=== PATIENT | female | born 1950 | race Caucasian/White ===

== ENCOUNTER 2016-09-08 20:01 | Observation (INO) | payer MEDICARE ==
[2016-09-08] MEDS: Aspirin EC Low Dose* 81 MG TAB.EC PO SCH (23:21)
[2016-09-08] MEDS: Metoprolol Tartrate TAB* 25 MG PO SCH (23:21)
[2016-09-08 23:41] LABS: Hematocrit 34 % (35-47); Hemoglobin 11.3 g/dl (12.0-16.0); Mean Corpuscular HGB Conc 34 g/dl (31-36); Mean Corpuscular Hemoglobin 30 pg (27-31); Mean Corpuscular Volume 90 fL (80-97); Mean Platelet Volume 9 um3 (7.4-10.4); Red Blood Count 3.74 10^6/ul (4.0-5.4); Red Cell Distribution Width 15 % (10.5-15); White Blood Count 7.7 10^3/ul (3.5-10.8)
[2016-09-08 23:55] LABS: Albumin 3.8 g/dL (3.2-5.2); Calcium 9.2 mg/dL (8.6-10.3); EGFR African American 52.1 (>60); EGFR Non-African American 40.5 (>60); Globulin 2.3 g/dL (2-4); Total Bilirubin 0.7 mg/dL (0.2-1.0); Total Protein 6.1 g/dL (6.4-8.9)
[2016-09-09] MEDS: Heparin VIAL(*) 5000 UNITS/ML VIAL (FIVE THOUSAND) SUBCUT SCH ×2 (05:59→15:18)
[2016-09-09 06:28] LABS: HDL Cholesterol 27.7 mg/dL
[2016-09-09 07:41] VITALS: BP 127/45
[2016-09-09] MEDS: Metoprolol Tartrate TAB* 25 MG PO SCH (08:21)
[2016-09-09] MEDS: Aspirin EC Low Dose* 81 MG TAB.EC PO SCH (08:21)
--- NOTE | 2016-09-09 08:52 | RAD ---
Indication: Chest pain. 2 views of the chest including dual energy PA views demonstrate no mediastinal shift. Heart is of normal size and configuration. Lung neumann demonstrate no pleural fluid, pneumonia or pneumothorax. IMPRESSION: No active cardiopulmonary disease is noted.
--- NOTE | 2016-09-09 09:05 | HP ---
HISTORY AND PHYSICAL: DATE OF ADMISSION: 09/08/16 She has no Primary Care Provider. CHIEF COMPLAINT: Chest pain. HISTORY OF PRESENT ILLNESS: The patient is a 65-year-old woman who presents to [facility] with a chief complaint of having chest pain recently. She knows she has had a high blood pressure all week; she says it's unusual for her. Then, her arm started aching on the left side. Then, she started feeling like someone was squeezing on her chest. It stayed quite a while and noticed it on and off for the last several days. Chest pressure at its worse was 7/10 in severity. It did not radiate. She had nausea, but no vomiting. She was sweating, but not clammy. She was short of breath. She did have increased chest pain with any exertion. She went to [facility] finally because she became concerned, and they sent her over our hospital for further evaluation. PAST MEDICAL HISTORY: Significant for hypertension, nephrolithiasis, status post lithotripsy. PAST SURGICAL HISTORY: Significant for cholecystectomy, two C-sections, JOANNE-BSO , appendectomy. MEDICATIONS: She only takes a baby aspirin a day. ALLERGIES: She has an allergy/adverse reaction to DEMEROL. SOCIAL HISTORY: Smokes 7 cigarettes a day; has smoked up to one and half packs a day and has been smoking for 48 years. Rare alcohol. No recreational drug use. 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 She is , with 3 children. Her , Cipriano Del Cid, is her healthcare proxy. FAMILY HISTORY: Mother at 60 of lung cancer. Father at 69 of lung cancer, and had an NE at 68 and four-vessel bypass. REVIEW OF SYSTEMS: A 14-point review of systems was completed with the patient , all pertinent positives and negatives are in the history of present illness, otherwise, it is negative. PHYSICAL EXAMINATION GENERAL: Pleasant woman, lying in bed, in no acute distress. VITAL SIGNS: Heart rate 61 beats per minute, temperature 98.4 degrees, respiratory rate 20 breaths per minute, pulse ox 97%, blood pressure 133/55. HEENT: Normocephalic, atraumatic. Pupils equal, round, and reactive to light. Moist mucous membranes. NECK: Supple. No JVD, bruits, palpable thyroid or lymphadenopathy. CHEST: Clear to auscultation and percussion bilaterally. CARDIOVASCULAR: S1 and S2 appreciated. ABDOMEN: Positive bowel sounds in all 4 quadrants. Soft, nontender, nondistended. EXTREMITIES: No cyanosis, clubbing, or edema. +2 pulses bilaterally. NEUROLOGIC: Alert and oriented x3. Moves all extremities. SKIN: No rashes or abnormalities. LAB DATA: EKG - unable to see the one from [place]. We will repeat. White count 7.7, hemoglobin 11.3, hematocrit 34, platelets 226. Sodium was 139 , potassium 4.0, chloride 105, CO2 27, BUN 17, creatinine 1.31, glucose 142. INR 0.85. Chest x-ray also we will repeat while here. ASSESSMENT AND PLAN: 1. Chest pain. She does have risk factors and a fairly reasonable story, although her troponin so far is 0. We will check the fasting lipid profile. We will check stress nuclear in the morning. I suspect she will have some form of ischemia and likely need a catheterization, but we will await final readings. 2. Hypertension. Start metoprolol 25 q.8 hours. 3. Tobacco cessation. Encouraged her stopping. Does not need nicotine replacement at this time as per patient. 4. DVT prophylaxis. Heparin subcu. 5. FEN. N.p.o. for stress test. 6. The patient is a full code. TIME SPENT: Over 75 minutes were spent on this H and P, more than 40 minutes of which were spent in direct [id number] contact with the patient in evaluation, physical exam, and counseling and coordination of care. [id number] #: [id number] ROBERTA
[2016-09-09] MEDS ORDERED: Regadenoson* 0.4 MG/5 ML SYRINGE ONE (11:29)
--- NOTE | 2016-09-09 11:53 | RAD ---
INDICATION: Chest pain. COMPARISON: There are no prior studies available for comparison. Technique: A single day myocardial perfusion stress study was performed. Initially a resting study was performed. The patient was given an intravenous injection of 10.1 mCi of technetium 99m tetrofosmin and and the heart was imaged in multiple projections. The patient returned later in the day and under the direction of Dr. Alexis, the patient was exercised to a peak heart rate of 131 beats per minute which was 86% of the maximum predicted heart rate. Subsequently the patient was given intravenous injection of 25.0 mCi of technetium 99m tetrofosmin and the heart was imaged in multiple projections. Images were reconstructed in the axial, sagittal and coronal planes and in a 3-D format. FINDINGS: There appears to be normal wall motion and myocardial thickening. The left ventricular ejection fraction was calculated to be 69%. Review of the images demonstrates normal distribution of radiopharmaceutical. IMPRESSION: NO EVIDENCE FOR INFARCT OR ISCHEMIA. ASSESSMENT: Low risk. Based on imaging criteria from ACC/AHA 2002 Guideline Update for the Management of Patients With Chronic Stable Angina Table 23. Noninvasive Risk Stratification.
--- NOTE | 2016-09-09 12:19 | DCNOTE ---
Patient seen this morning after stress test. Denies any further chest pain since PM metoprolol and BP improvement. Has not been compliant with medical follow-up in the past but is agreeable now, likes the physician she saw at [facility] and will have f/u appt with him. Reports she is planning on stopping smoking as well. On exam, obese F, laying in bed in NAD, RRR, s1 and s2 present, no m/g /r, chest CTA B/L, no w/r/r, no LE edema Stress test read as low risk. Had excellent response to Metoprolol so will keep this for now. Will also add statin for CV risk reduction. F/U with PCP as outpatient.
[2016-09-09] MEDS ORDERED: Metoprolol Succinate XL TAB* 50 MG PO SCH (13:00)
[2016-09-09] MEDS ORDERED: Atorvastatin* 40 MG TAB PO SCH (17:00)
--- NOTE | 2016-09-10 09:24 | DS ---
DATE OF ADMISSION: 09/08/16 DATE OF DISCHARGE: 09/09/16 PRIMARY CARE PHYSICIAN: Through [facility]. PRINCIPAL DISCHARGE DIAGNOSES: 1. Hypertensive urgency. 2. Chest pain. SECONDARY DIAGNOSIS: Tobacco abuse. DISCHARGE MEDICATION REGIMEN: 1. Vitamins. 2. Toprol XL 50 mg by mouth daily. 3. Atorvastatin 40 mg by mouth nightly. 4. Aspirin 81 mg by mouth daily. STUDIES DONE DURING HOSPITALIZATION: 1. Chest x-ray: Impression: No active cardiopulmonary disease is noted. 2. Nuclear cardiac stress test: No evidence for infarct or ischemia. Assessment: Low risk. HISTORY OF PRESENT ILLNESS AND HOSPITAL SUMMARY: Please see the full history and physical by Dr. Danilo Lozano for full details. Briefly, Ms. Del Cid is a 65-year-old female with a past medical history of distant hypertension, tobacco abuse who presented to the hospital with intermittent chest pain in the setting of elevated blood pressures. The patient states that she was taking her pressures at home and was noted to have systolics in the 200s. She let this go on for a number of days, and subsequently decided to see a physician at [facility]. On arrival, she mentioned that she had has also been chest pain so she was sent to the emergency department at [facility] and then transferred here. She was placed on cardiac tech and her troponins were trended which remained negative. Her chest pain resolved after her hypertension did after receiving metoprolol. The patient underwent a cardiac stress test that was negative and she had no arrhythmias on telemetry. The patient will be continued on Toprol XL as she had an excellent response to it. I also did her cardiovascular where she was started on dose of atorvastatin 40 mg daily. She was instructed to continue her home aspirin and follow up with her PCP closely. She will keep an eye on her blood pressures at home too, and was instructed to call her PCP if her pressures are sustained in the 160s or higher. Total time spent on this discharge: 40 minutes. This is a summary of the hospitalization. Please see the full medical record for further details. [id number] #: [id number] MTDD
== END 2016-09-09 14:15 | disposition home or self-care (01) ==
LOC: MEDTELE 21:00
PROVIDERS: ADMIT Internal Medicine; ATTEND Hospitalist
DX: R07.9 Chest pain, unspecified (principal); I10 Essential (primary) hypertension; F17.210 Nicotine dependence, cigarettes, uncomplicated; R06.02 Shortness of breath
CPT/HCPCS: 36415; 71020; 78452; 80053; 80061; 84484; 84520; 85025; 85610; 85730; 93005; 93017; 96372; A9270-GY; A9502; G0378; J1644; J2785